=== PATIENT | female | born 1975 | race African-American/Black ===

== ENCOUNTER 2021-09-24 17:32 | Inpatient (IN) | payer BC, MEDICAID ==
[~2021-09-24] VITALS: Ht 157.5 cm; Wt 59.0 kg
[2021-09-24] MEDS ORDERED: ONDANSETRON HCL 4MG/2ML INJ IV STA (19:06)
[2021-09-24] MEDS ORDERED: SODIUM CHLORIDE 0.9% 1,000 ML IV ONE (19:15)
[2021-09-24 20:08] LABS: CHLORIDE 112 mEq/L (98-107)
[2021-09-24 20:13] LABS: HCG SCREEN NEGATIVE
[2021-09-24 21:08] LABS: BASOPHILS % 0.4 % (0.0-2.0); LYMPHOCYTES % 9.9 % (20.0-50.0); MEAN CORPUSCULAR HEMOGLOBIN 31.9 pg (28.0-32.0); MEAN CORPUSCULAR VOLUME 95.1 fL (81.0-99.0); MEAN PLATELET VOLUME 7.9 fl (7.4-10.4); MONOCYTES % 4.1 % (2.0-8.0); NEUTROPHILS % 85.6 % (40.0-76.0); PLATELET 202 x1000/uL (130-400); RED BLOOD CELL COUNT 2.05 mill/uL (4.2-5.4); RED CELL DISTRIBUTION WIDTH 15.2 % (11.6-14.6)
[2021-09-24 21:16] LABS: HEMOGLOBIN. 6.5 g/dL (12.0-16.0)
[2021-09-24 21:17] LABS: HEMATOCRIT. 19.5 % (36.0-48.0)
[2021-09-24] MEDS ORDERED: PANTOPRAZOLE SODIUM 40 MG/VIAL IV STA (22:13)
[2021-09-24] MEDS ORDERED: PANTOPRAZOLE 80 MG in SODIUM CHLORIDE 0.9% 100 ML IV STA (22:13)
[2021-09-24 23:17] LABS: INR 1.1; PARTIAL THROMBOPLASTIN TIME 24.3 sec (23.4-31.0); PROTHROMBIN TIME 12.2 sec (9.6-11.0)
[2021-09-25] VITALS (9 sets, daily range): BP systolic 98–135; BP diastolic 43–79
[2021-09-25] MEDS ORDERED: ACETAMINOPHEN 650MG SUPP PR PRN (09:00)
[2021-09-25] MEDS ORDERED: IPRATROPIUM/ALBUTEROL 0.5-3(2.5)MG/3ML NEB HHN PRN (09:00)
[2021-09-25] MEDS ORDERED: ONDANSETRON HCL 4MG/2ML INJ IV PRN (09:00)
[2021-09-25] MEDS: DEXT 5%/0.45% NACL 1000ML 1,000 ML IV SCH ×2 (12:29→18:12)
[2021-09-25 14:47] LABS: BASOPHILS % 0.7 % (0.0-2.0); EOSINOPHILS % 0.6 % (0.0-5.0); HEMOGLOBIN. 7.1 g/dL (12.0-16.0); LYMPHOCYTES % 28.4 % (20.0-50.0); MEAN CORPUSCULAR HEMOGLOBIN 33.1 pg (28.0-32.0); MEAN CORPUSCULAR VOLUME 95.4 fL (81.0-99.0); MEAN PLATELET VOLUME 7.9 fl (7.4-10.4); MONOCYTES % 9.1 % (2.0-8.0); NEUTROPHILS % 61.2 % (40.0-76.0); PLATELET 190 x1000/uL (130-400); RED BLOOD CELL COUNT 2.13 mill/uL (4.2-5.4); RED CELL DISTRIBUTION WIDTH 15.6 % (11.6-14.6)
[2021-09-25 14:50] LABS: CHLORIDE 116 mEq/L (98-107)
[2021-09-25 14:55] LABS: HEMATOCRIT. 20.3 % (36.0-48.0)
[2021-09-25 17:45] LABS: CLARITY URINE CLEAR (CLEAR); COLOR URINE YELLOW (YELLOW); KETONES URINE 1+ (NEGATIVE); LEUKOCYTE ESTERASE URINE NEGATIVE (NEGATIVE); NITRITE URINE NEGATIVE (NEGATIVE); OCCULT BLOOD URINE NEGATIVE (NEGATIVE); PH URINE 5.5 (4.5-8.0); PROTEIN URINE NEGATIVE (NEGATIVE); SPECIFIC GRAVITY URINE 1.016 (1.005-1.030); UROBILINOGEN URINE 0.2 E.U./dL (0.2-1.0)
[2021-09-25 17:55] LABS: *AMPHETAMINES SCREEN URINE NEGATIVE (NEGATIVE); *BARBITURATES SCREEN URINE NEGATIVE (NEGATIVE); *BENZODIAZEPINES SCREEN URINE NEGATIVE (NEGATIVE); *COCAINE SCREEN URINE NEGATIVE (NEGATIVE); OPIATES URINE SCREEN NEGATIVE (NEGATIVE); PHENCYCLIDINE URINE SCREEN NEGATIVE (NEGATIVE)
[2021-09-25 18:02] LABS: CANNABINOID URINE SCREEN PRESUMTIVE POSITIVE (NEGATIVE)
[2021-09-25 18:06] LABS: METHADONE URINE SCREEN NEGATIVE (NEGATIVE)
[2021-09-25] MEDS ORDERED: OCTREOTIDE ACETATE 50 MCG/ML 1ML IV NR (20:00)
[2021-09-25] MEDS ORDERED: OCTREOTIDE 1,000 MCG in SODIUM CHLORIDE 0.9% 98 ML IV SCH (20:15)
[2021-09-25] MEDS: PANTOPRAZOLE SODIUM 40 MG/VIAL IV SCH (21:52)
[2021-09-26] VITALS: BP 109/74
[2021-09-26 00:14] LABS: HEMATOCRIT 25.6 % (36.0-48.0); HEMOGLOBIN 8.7 g/dL (12.0-16.0); MEAN CORPUSCULAR HEMOGLOBIN 32.2 pg (28.0-32.0); MEAN CORPUSCULAR VOLUME 94.6 fL (81.0-99.0); PLATELET 211 x1000/uL (130-400); RED CELL DISTRIBUTION WIDTH 15.4 % (11.6-14.6)
[2021-09-26 00:37] LABS: INR 1.1; PROTHROMBIN TIME 11.8 sec (9.6-11.0)
[2021-09-26 04:00] VITALS: BP 100/65
[2021-09-26 08:00] VITALS: BP 115/70
[2021-09-26 08:32] LABS: BASOPHILS % 1.3 % (0.0-2.0); EOSINOPHILS % 1.3 % (0.0-5.0); HEMATOCRIT. 22.9 % (36.0-48.0); HEMOGLOBIN. 8.1 g/dL (12.0-16.0); LYMPHOCYTES % 27.8 % (20.0-50.0); MEAN CORPUSCULAR HEMOGLOBIN 33.1 pg (28.0-32.0); MEAN CORPUSCULAR VOLUME 93.8 fL (81.0-99.0); MEAN PLATELET VOLUME 8.2 fl (7.4-10.4); MONOCYTES % 10.8 % (2.0-8.0); NEUTROPHILS % 58.8 % (40.0-76.0); PLATELET 196 x1000/uL (130-400); RED BLOOD CELL COUNT 2.44 mill/uL (4.2-5.4); RED CELL DISTRIBUTION WIDTH 15.7 % (11.6-14.6)
[2021-09-26 08:36] LABS: CHLORIDE 113 mEq/L (98-107)
[2021-09-26 08:43] LABS: TOTAL IRON BINDING CAPACITY 271 ug/dL (250-450)
[2021-09-26] MEDS: MULTIVITAMINS,THER W-MINERALS TABLET PO SCH (09:18)
[2021-09-26] MEDS: THIAMINE HCL 100MG TABLET PO SCH (09:18)
[2021-09-26] MEDS: PANTOPRAZOLE SODIUM 40 MG/VIAL IV SCH ×2 (09:18→17:24)
[2021-09-26] MEDS: DEXT 5%/0.45% NACL 1000ML 1,000 ML IV SCH ×2 (09:19→17:24)
[2021-09-26 10:26] LABS: FOLIC ACID (FOLATE) SERUM 16.6 ng/mL (>5.38)
[2021-09-26 12:00] VITALS: BP 122/78
[2021-09-26 16:00] VITALS: BP 107/80
[2021-09-26] MEDS: IRON SUCROSE COMPLEX 100 MG/5 ML ML IV SCH (18:27)
[2021-09-26 20:00] VITALS: BP 133/78
[2021-09-27] VITALS: BP 126/60
[2021-09-27] MEDS: DEXT 5%/0.45% NACL 1000ML 1,000 ML IV SCH ×3 (00:49→17:19)
[2021-09-27 04:00] VITALS: BP 112/61
[2021-09-27 05:59] LABS: BASOPHILS % 0.7 % (0.0-2.0); EOSINOPHILS % 2.3 % (0.0-5.0); HEMATOCRIT. 23.7 % (36.0-48.0); HEMOGLOBIN. 8.2 g/dL (12.0-16.0); LYMPHOCYTES % 30.9 % (20.0-50.0); MEAN CORPUSCULAR HEMOGLOBIN 32.5 pg (28.0-32.0); MEAN CORPUSCULAR VOLUME 94.5 fL (81.0-99.0); MEAN PLATELET VOLUME 8.2 fl (7.4-10.4); MONOCYTES % 11.2 % (2.0-8.0); NEUTROPHILS % 54.9 % (40.0-76.0); PLATELET 222 x1000/uL (130-400); RED BLOOD CELL COUNT 2.51 mill/uL (4.2-5.4); RED CELL DISTRIBUTION WIDTH 15.8 % (11.6-14.6)
[2021-09-27 06:30] LABS: INR 1.1; PROTHROMBIN TIME 11.3 sec (9.6-11.0)
[2021-09-27 07:00] LABS: CHLORIDE 113 mEq/L (98-107)
[2021-09-27 08:00] VITALS: BP 140/72
[2021-09-27] MEDS: MULTIVITAMINS,THER W-MINERALS TABLET PO SCH (08:48)
[2021-09-27] MEDS: THIAMINE HCL 100MG TABLET PO SCH (08:48)
[2021-09-27] MEDS: PANTOPRAZOLE SODIUM 40 MG/VIAL IV SCH ×2 (08:48→17:19)
[2021-09-27] MEDS ORDERED: PROPOFOL 200MG/20ML VIAL IV ONE (11:49)
[2021-09-27] MEDS ORDERED: MIDAZOLAM HCL 5 MG/5 ML VIAL ONE (11:49)
[2021-09-27] MEDS ORDERED: LIDOCAINE HCL 1% 10 MG/ML 10ML VIAL ONE (11:50)
[2021-09-27 12:00] VITALS: BP 112/59
[2021-09-27] MEDS: SUCRALFATE 1G TABLET PO SCH ×2 (12:10→17:19)
[2021-09-27] MEDS ORDERED: SIMETHICONE 40 MG/0.6 ML 15ML ONE (12:11)
[2021-09-27] MEDS ORDERED: OMEP40CA20 MT (14:12)
[2021-09-27] MEDS ORDERED: SUCR1TAB MT (14:13)
[2021-09-27 15:51] VITALS: BP 114/63
[2021-09-27 16:00] VITALS: BP 114/63
[2021-09-27] MEDS: IRON SUCROSE COMPLEX 100 MG/5 ML ML IV SCH (17:19)
== END 2021-09-27 18:25 | disposition home or self-care (01) | DRG 378 ==
LOC: ER 17:32 → MICUSO 22:11 → 8WST 09-25 08:57
PROVIDERS: ADMIT Internal Medicine; ATTEND Internal Medicine
PROC: 30233N1 Transfusion of Nonautologous Red Blood Cells into Peripheral Vein, Percutaneous Approach (ICD-10-PCS; principal; 2021-09-24)
PROC: 0DB68ZX Excision of Stomach, Via Natural or Artificial Opening Endoscopic, Diagnostic (ICD-10-PCS; 2021-09-27)
DX: K25.4 Chronic or unspecified gastric ulcer with hemorrhage (principal); D62 Acute posthemorrhagic anemia; D50.9 Iron deficiency anemia, unspecified; I10 Essential (primary) hypertension; G43.909 Migraine, unspecified, not intractable, without status migrainosus; Z79.1 Long term (current) use of non-steroidal anti-inflammatories (NSAID); F10.21 Alcohol dependence, in remission; R55 Syncope and collapse
CPT/HCPCS: 36415; 71045; 76700; 80053; 80305; 81003; 82607; 82728; 82746; 83540; 83550; 84484; 84703; 85025; 85027; 85044; 85049; 85384; 86850; 86900; 86920; 87426; 88305; 88312; 88313; 93005; 93970; 99285; C9113; J2250; J2354; J2405; J2704; J3490; J7030; J7042; J7050; P9016

== ENCOUNTER 2022-10-25 16:03 | Emergency (ER) | payer BC, MEDICAID ==
[~2022-10-25] VITALS: Ht 157.5 cm; Wt 65.0 kg
[~2022-10-25 16:03] MED LIST: OMEP40CA20 MT; SUCR1TAB MT
[2022-10-25 16:13] VITALS: BP 158/87
[2022-10-26] MEDS ORDERED: ACET-2708 MT (05:00)
== END 2022-10-25 19:06 | disposition left against medical advice (07) ==
LOC: ER 16:03
DX: Z53.21 Procedure and treatment not carried out due to patient leaving prior to being seen by health care provider (principal)
CPT/HCPCS: 99281

== ENCOUNTER 2022-10-25 19:49 | Emergency (ER) | payer BC, MEDICAID ==
[~2022-10-25] VITALS: Ht 157.5 cm; Wt 66.0 kg
[2022-10-25] MEDS ORDERED: KETOROLAC 30MG/ML VIAL IV ONE (23:30)
[2022-10-25 23:53] LABS: BASOPHILS % 0.8 % (0.0-2.0); EOSINOPHILS % 2.6 % (0.0-5.0); HEMATOCRIT. 34.6 % (36.0-48.0); HEMOGLOBIN. 11.6 g/dL (12.0-16.0); LYMPHOCYTES % 25.8 % (20.0-50.0); MEAN CORPUSCULAR HEMOGLOBIN 31.2 pg (28.0-32.0); MEAN PLATELET VOLUME 7.6 fl (7.4-10.4); MONOCYTES % 13.5 % (2.0-8.0); NEUTROPHILS % 57.3 % (40.0-76.0); PLATELET 326 x1000/uL (130-400); RED BLOOD CELL COUNT 3.72 mill/uL (4.2-5.4); RED CELL DISTRIBUTION WIDTH 17.2 % (11.6-14.6)
[2022-10-26 00:09] LABS: CHLORIDE 109 mEq/L (98-107)
[2022-10-26 00:20] LABS: HCG SCREEN NEGATIVE
[2022-10-26 00:49] VITALS: BP 123/78
[2022-10-26] MEDS ORDERED: IOHEXOL-300 100 ML BOTTLE ONE (01:08)
[2022-10-26] MEDS ORDERED: ACET-2708 MT (05:00)
== END 2022-10-26 05:19 | disposition home or self-care (01) ==
LOC: ER 19:49
DX: R68.84 Jaw pain (principal); I10 Essential (primary) hypertension; Z98.51 Tubal ligation status
CPT/HCPCS: 36415; 70487; 80053; 83605; 84703; 85025; 85651; 96374; 99285; J1885; Q9967; Z7610